=== PATIENT | female | born 1980 | race Caucasian/White ===

== ENCOUNTER 2018-08-20 13:31 | Emergency (ER) | payer OTHER ==
[2018-08-20] MEDS ORDERED: NS 1,000 ML IV ONE ×2 (13:51→14:32)
--- NOTE | 2018-08-20 14:00 | EDPHY ---
H & P Stated Complaint: Pt incomplete miscarraige 1wk, was bleeding, weak/diarr/dizzy/ pale Source: Patient Exam Limitations: No limitations - Personal History Current Tetanus/Diphtheria Vaccine: Yes - Medical/Surgical History Hx Asthma: No Hx Chronic Respiratory Disease: No Hx Diabetes: No Hx Cardiac Disease: No Hx Renal Disease: No Hx Cirrhosis: No Hx Alcoholism: No Hx HIV/AIDS: No Hx Splenectomy or Spleen Trauma: No Other PMH: tonsilectomy - Social History Smoking Status: Never smoked Time Seen by Provider: 08/20/18 13:50 HPI/ROS: CHIEF COMPLAINT: Lightheadedness, diarrhea, recent miscarriage and D and C HISTORY OF PRESENT ILLNESS: The patient presents to the ED with a 1 day history of lightheadedness, diarrhea and presyncope. The patient did have a incomplete which required D and C approximately week ago. The patient did have some postprocedure anemia. She was started on iron supplementation. Today the patient developed symptoms of acute diarrhea. She denies any acute abdominal pain, nausea or vomiting. She has continued to have some mild ongoing bleeding but denies heavy uterine bleeding. She denies any fever or acute pelvic pain. The patient is not on anticoagulants. She denies any history of dysuria or recent antibiotic use. REVIEW OF SYSTEMS: A comprehensive 10 point review of systems is otherwise negative aside from elements mentioned in the history of present illness. (Rishi Juan) - Physical Exam Exam: General Appearance: Alert, no distress Eyes: Pupils equal and round no pallor or injection ENT, Mouth: Mucous membranes moist Respiratory: There are no retractions, lungs are clear to auscultation Cardiovascular: Tachycardic Gastrointestinal: Minimal suprapubic tenderness to palpation Neurological: 5/5 strength noted all 4 extremities Skin: Slight pallor, warm and dry, no rashes Musculoskeletal: Neck is supple nontender Extremities: symmetrical, full range of motion (Rishi Juan) Constitutional: Initial Vital Signs Temperature (C) 36.6 C 08/20/18 13:42 Heart Rate 123 H 08/20/18 13:42 Respiratory Rate 18 08/20/18 13:42 Blood Pressure 91/66 L 08/20/18 13:42 O2 Sat (%) 100 08/20/18 13:42 O2 Delivery Mode Room Air Allergies/Adverse Reactions: No Known Allergies Allergy (Unverified 08/20/18 13:42) Medical Decision Making - Diagnostics EKG Interpretation: EKG: Complete interpretation has been separately recorded in the [employer] archive. Summary impression: Sinus tachycardia, rate 108 (Rihsi Juan) ED Course/Re-evaluation: The patient presents to the ED after a vasovagal event in the setting of recent diarrhea. The patient's past medical history is significant for recent D&C. She did have some postprocedure anemia. She is noted to have a reassuring hemoglobin of 11 in the emergency department today. Patient's EKG demonstrates only a slight sinus tachycardia. The patient had an IV established. She received 2 L of normal saline. I re-evaluated the patient at 2:45 p.m.. She is still completing her 1st L of normal saline. Patient has no pelvic tenderness. Her hematocrit and hemoglobin are reassuring. Plan will be for continued IV fluid rehydration and reassessment in the emergency department. The patient will be turned over to Dr. Borjas at shift change for reassessment. (Rishi Juan) I took over care of this patient at 3:00 p.m.. This patient is to be re- evaluated after her 2nd L of IV fluid. She presented to the emergency department after a vasovagal event in the setting of recent diarrhea. 3:55 p.m., patient re-evaluated. Her is present in the room with her. She has been up and ambulatory to the bathroom without issue. She denies any lightheadedness. She states that she is feeling better. However, she remains tachycardic at 118-120 and her current blood pressure is 83/56. She states that she normally runs a systolic blood pressure of 100-105. I discussed my concern regarding her vital signs. Repeat abdominal exam she is soft, nontender nondistended. She has not had any vaginal bleeding. She has not had any further diarrhea while in the emergency department. I discussed admitting her for continued IV fluid resuscitation and observation overnight. Currently she does not want to do this. She is asking for some time to talk it over with her . In my professional opinion she understands the risks of declining admission. She has capacitance to make decisions. 4:20 p.m., the patient was re-evaluated. Blood pressure currently 97/64. Heart rate of 115. Repeat abdominal exam she is soft, nontender nondistended. She and her have decided that they would like to go home and are requesting discharge. They state that they can easily return to the emergency department if needed. Return to emergency department precautions were thoroughly reviewed with the 2 of them. Follow-up was discussed. All of her questions were answered. The patient was discharged home in good condition with her . (Christian Borjas) Differential Diagnosis: Differential diagnosis considered includes anemia, arrhythmia, dehydration, metabolic abnormality, gastroenteritis, endometritis (Rishi Juan) - Data Points Laboratory Results: Laboratory Results 08/20/18 13:50 08/20/18 13:50 08/20/18 08/20/18 08/20/18 14:01 13:50 13:50 WBC 11.21 10^3/uL H 10^3/uL (3.80-9.50) RBC 4.15 10^6/uL L 10^6/uL (4.18-5.33) Hgb 10.7 g/dL L g/dL (12.6-16.3) POC Hgb 11.6 gm/dL L gm/dL (12.6-16.3) Hct 34.1 % L % (38.0-47.0) POC Hct 34 % L % (38-47) MCV 82.2 fL fL (81.5-99.8) MCH 25.8 pg L pg (27.9-34.1) MCHC 31.4 g/dL L g/dL (32.4-36.7) RDW 14.7 % % (11.5-15.2) Plt Count 291 10^3/uL 10^3/uL (150-400) MPV 10.6 fL fL (8.7-11.7) Neut % (Auto) 93.0 % H % (39.3-74.2) Lymph % (Auto) 3.7 % L % (15.0-45.0) [place] % (Auto) 2.2 % L % (4.5-13.0) Eos % (Auto) 0.4 % L % (0.6-7.6) Baso % (Auto) 0.3 % % (0.3-1.7) Nucleat RBC Rel Count 0.0 % % (0.0-0.2) Absolute Neuts (auto) 10.44 10^3/uL H 10^3/uL (1.70-6.50) Absolute Lymphs (auto) 0.41 10^3/uL L 10^3/uL (1.00-3.00) Absolute Monos (auto) 0.25 10^3/uL L 10^3/uL (0.30-0.80) Absolute Eos (auto) 0.04 10^3/uL 10^3/uL (0.03-0.40) Absolute Basos (auto) 0.03 10^3/uL 10^3/uL (0.02-0.10) Absolute Nucleated RBC 0.00 10^3/uL 10^3/uL (0-0.01) Immature Gran % 0.4 % % (0.0-1.1) Immature Gran # 0.04 10^3/uL 10^3/uL (0.00-0.10) RBC/WBC/PLT Morphology TNP Platelet Estimate TNP POC Sodium 141 mEq/L mEq/L (135-145) Sodium 136 mEq/L mEq/L (135-145) POC Potassium 3.9 mEq/L mEq/L (3.3-5.0) Potassium 4.1 mEq/L mEq/L (3.5-5.2) POC Chloride 107 mEq/L mEq/L (97-110) Chloride 108 mEq/L mEq/L (97-110) Carbon Dioxide 19 mEq/l L mEq/l (22-31) Anion Gap 9 mEq/L mEq/L (6-14) POC BUN 9 mg/dL mg/dL (7-23) BUN 11 mg/dL mg/dL (7-23) Creatinine 0.7 mg/dL mg/dL (0.6-1.0) POC Creatinine 0.6 mg/dL mg/dL (0.6-1.0) Estimated GFR > 60 Glucose 104 mg/dL H mg/dL (70-100) POC Glucose 106 mg/dL H mg/dL (70-100) Calcium 8.7 mg/dL mg/dL (8.5-10.4) Beta HCG, Quant Cancelled Medications Given: Discontinued Medications Sodium Chloride (Ns) 1,000 mls @ 0 mls/hr IV EDNOW ONE; Wide Open PRN Reason: Protocol Stop: 08/20/18 13:52 Last Admin: 08/20/18 13:59 Dose: 1,000 mls Sodium Chloride (Ns) 1,000 mls @ 0 mls/hr IV EDNOW ONE; Wide Open PRN Reason: Protocol Stop: 08/20/18 14:33 Last Admin: 08/20/18 14:45 Dose: 1,000 mls Point of Care Test Results: Chemistry 08/20/18 14:01 POC Sodium 141 mEq/L mEq/L (135-145) POC Potassium 3.9 mEq/L mEq/L (3.3-5.0) POC Chloride 107 mEq/L mEq/L (97-110) POC BUN 9 mg/dL mg/dL (7-23) POC Creatinine 0.6 mg/dL mg/dL (0.6-1.0) POC Glucose 106 mg/dL H mg/dL (70-100) ISTAT H&H 08/20/18 14:01 POC Hgb 11.6 gm/dL L gm/dL (12.6-16.3) POC Hct 34 % L % (38-47) Departure - Departure Disposition: Home, Routine, Self-Care Clinical Impression: Diarrhea, Dehydration, Syncope Condition: Good Instructions: Syncope (ED), Acute Diarrhea (ED) Additional Instructions: Read and follow provided instructions. Follow-up with your primary care physician in 2-3 days for re-evaluation. Keep yourself well hydrated. This is very important. A good fluid to drink is Gatorade mixed with water in a 1-1 dilution over ice. Return to the emergency department for lightheadedness, vomiting and inability to keep fluids down, abdominal pain, vaginal bleeding or other serious concerns. Referrals: NONE *PRIMARY CARE P,. [Primary Care Provider] - As per Instructions
[2018-08-20 14:05] LABS: PLATELET COUNT 291 10^3/uL (150-400)
--- NOTE | 2018-08-20 14:37 | CPEKG ---
Test Reason : OPEN Blood Pressure : / mmHG Vent. Rate : 108 BPM Atrial Rate : 109 BPM P-R Int : 134 ms QRS Dur : 074 ms QT Int : 344 ms P-R-T Axes : 074 082 003 degrees QTc Int : 461 ms Sinus tachycardia Low voltage, precordial leads Confirmed by Rishi Juan ([id number]) on 08/20/2018 2:36:48 PM Referred By: Confirmed By:Rishi Juan
[2018-08-20 16:45] VITALS: BP 97/64
== END 2018-08-20 16:45 | disposition home or self-care (01) ==
DX: R19.7 Diarrhea, unspecified (principal); R55 Syncope and collapse; E86.0 Dehydration
CPT/HCPCS: 82435-PO; 82565-PO; 82947-PO; 84132-PO; 84295-PO; 84520-PO; 85014-PO